=== PATIENT | male | born 1930 | race Caucasian/White ===

== ENCOUNTER 2017-12-20 11:06 | Observation (INO) ==
--- NOTE | 2017-12-20 11:21 | DR.GENAD ---
HPI - Complaint/Symptoms Chief Complaint Doctors Comments: Patient states he was working in the yard pulling up and transplanting and he felt dizzy and fell over and he got up and tried to continue and got dizzy and fell over again and [facility] went [facility] and they told him he needed to go to the doctor. EMS states he was working in the yard and had a syncope spell. states his blood pressue was 104/64. States he has head a dull headache at times but denies chest pain, SOB, cold or cough. States he has a problem with constipation and urine incontinence. Family states the patient pressure washed the house yesterday and was planting tejada today in the sun. Patient states he had a cardiac stent about four years ago at [facility] - Nurses notes reviewed Nurses Notes Review: Yes - Source History Provided: Patient, EMS - Mode of Arrival Mode of Arrival: EMS - Timing Came on: Suddenly - Duration Duration: Intermittent How lon Duration: Hours - Location Location: dizziness - Severity Severity: Mild - Modifying Factors Worsens:: nothing Improves:: nothing ROS - Review of Systems Constitutional: No Symptoms Reported, Weakness. negative: See HPI, Chills, Diaphoresis, Fever, Malaise, Irritable, Fatigue, Loss of Appetite, Other Eyes: No Symptoms Reported ENTM: No Symptoms Reported. negative: See HPI, Ear Pain, Ear Discharge, Pulling on Ears, Hearing Loss, Nose Pain, Nose Discharge, Epistaxis, Nose Congestion, Mouth Pain, Mouth Swelling, Loose Teeth, Drooling, Throat Pain, Throat Swelling, Ear Foreign Body Respiratoy: No Symptoms Reported, Short of Breath. negative: See HPI, Productive Cough, Non-Productive Cough, Moist Cough, Dry Cough, Hacking Cough, Barking Cough, Brassy Cough, Orthopnea, Stridor, Wheezing, Hemoptysis, Other Cardiovascular: No Symptoms Reported, Syncope. negative: See HPI, Chest Pain, Edema, Palpitations, Cyanosis, Skin Mottling, Other Gastrointestinal/Abdominal: No Symptoms Reported. negative: See HPI, Abdominal Pain, Constipation, Diarrhea, Nausea, Vomiting, Food Intolerance, Other Genitourinary: No Symptoms Reported Neurological: No Symptoms Reported Musculoskeletal: No Symptoms Reported Integumentary: No Symptoms Reported Hematologic/Lymphatic: No Symptoms Reported Endocrine: No Symptoms Reported. negative: See HPI, Excessive Sweating, Flushing, Intolerance to Cold, Intolerance to Heat, Increased Hunger, Increased Thirst, Increased Urine, Unexplained Weight Gain, Unexplained Weight Loss, Failure to Thrive, Decreased Appetite, Other Psychiatric: No Symptoms Reported PE - General Limitations: No Limitations General Appearance: Alert, In No Apparent Distress - Head Head Exam: Normal Inspection, Atraumatic, Normocephalic - Eyes Eye exam: Normal Appearance, PERRL, EOMI. negative: Scleral Icterus, Conjunctival Injection, Nystagmus, Miosis, Mydrasis, Periorbital Swelling, Periorbital Tenderness, Other - ENT ENT Exam: Normal Exam, Normal Oropharynx, Normal External Ear Exam, Mucous Membranes Moist, TM's Normal Bilaterally External Ear Exam: Normal External Inspection TM/Canal Exam: Bilateral Normal Nose Exam: Normal Nose Exam Mouth Exam: Normal Inspection Throat Exam: Normal Inspection. negative: Tonsillar Erythema, Tonsillomegaly, Tonsillar Exudate, R Peritonsillar Mass, L Peritonsillar Mass, Muffled Voice, Other - Neck Neck Exam: Normal Inspection, Full ROM, Trachea Midline - Chest Chest Inspection: Normal Inspection, Symmetric Chest Wall Rise - Respiratory Respiratory Exam: Normal Lung Sounds Bilat. negative: Accessory Muscle Use, Chest Wall Tenderness, Prolonged Expiratory Phase, Respiratory Distress, Stridor , Other Respiratory Exam: Bilateral Clear to Auscultation - Cardiovascular Cardiovascular Exam: Regular Rate, Irregular Rhythm, Normal Heart Sounds, Systolic Murmur - Abdominal Exam Abdominal Exam: Normal Inspection, Normal Bowel Sounds, Soft. negative: Distention, Tenderness, Guarding, Rebound, Rigidity, Dimnished Bowel Sounds, Hyperactive Bowel Sounds, Hypoactive Bowel Sounds, Organomegaly, Trauma, Incision, Ascites, Mass, Bruit, Pulsatile Mass, Hernia, Other Abdominal Tenderness: negative: RUQ, RLQ, LUQ, LLQ, Epigastrium, Suprapubic, Diffuse, Mild, Moderate, Severe, Other - Extremities Extremities Exam: Normal Inspection, Full ROM, Normal Capillary Refill. negative: Tenderness, Edema, Joint Swelling, Calf Tenderness, Other - Back Back Exam: Normal Inspection, Full ROM. negative: Tenderness, (R) CVA Tenderness, (L) CVA Tenderness, Muscle Spasm, Paraspinal Tenderness, Vertebral Tenderness, Rashes, (R) Sciatic Notch Tenderness, (L) Sciatic Notch Tendern, (R ) Straight Leg Raise, (L) Straight Leg Raise, Other - Neurologic Neurological Exam: Alert, Oriented X3, CN II-XII Intact, Reflexes Normal. negative: Normal Gait (gait not tested) - Psychiatric Psychiatric Exam: Normal Affect, Normal Mood - Skin Skin Exam: Warm, Dry, Intact, Normal Color - Vital Signs Vitals: Temperature 98.5 F Pulse Rate [Right Radial] 70 Pulse Rate 82 Respiratory Rate 16 Blood Pressure [Right Radial 128/80 Artery] Blood Pressure 104/62 O2 Sat by Pulse Oximetry 99 Course - Reevaluation 1st: Improved - Consultation Called: 13:17 Call Returned: 13:17 (Dr. López to admit) - Education/Counseling Education/Counseling: Patient, Family Educated On: Treatment, Diagnosis, Needs for Follow Up ROR - Labs Reviewed Laboratory Results Reviewed?: Yes (All labs and x-ray results reviewed and discussed with patient) Result Diagrams: 12/20/17 11:38 12/20/17 11:38 - XRAY XRAY Interpreted by: Radiologist (CT head: No definite evidence of an acute intracranial process. Moderate microvascular white matter ischemic changes.) - EKG Rate: 82 [place]: Normal Rhythm: NSR, PVCs Block: None Hypertrophy: None ST: Normal, Nonsp - Labs Reviewed Laboratory: WBC 8.9 X10^3/uL (3.6-10.0) 12/20/17 11:38 RBC 4.22 X10^6/uL (4.7-6.0) L 12/20/17 11:38 Hgb 13.5 g/dL (13.5-18.0) 12/20/17 11:38 Hct 38.4 % (42.0-54.0) L 12/20/17 11:38 MCV 91.0 fL (80.0-100.0) 12/20/17 11:38 MCH 32.0 pg (27.0-34.0) 12/20/17 11:38 MCHC 35.1 g/dL (33.0-35.0) H 12/20/17 11:38 RDW 13.6 % (11.6-16.5) 12/20/17 11:38 Plt Count 136 X10^3/uL (150.0-450.0) L 12/20/17 11:38 MPV 8.8 fL (7.4-11.0) 12/20/17 11:38 Neut % (Auto) 73.2 % (42.0-75.0) 12/20/17 11:38 Lymph % (Auto) 15.5 % (21.0-51.0) L 12/20/17 11:38 [place] % (Auto) 9.2 % (0.0-13.0) 12/20/17 11:38 Eos % (Auto) 1.9 % (0.9-2.9) 12/20/17 11:38 Baso % (Auto) 0.2 % (0.2-1.0) 12/20/17 11:38 Neut # (Auto) 6.5 x10^3/uL (2.2-4.8) H 12/20/17 11:38 Lymph # (Auto) 1.4 X10^3/uL (1.3-2.9) 12/20/17 11:38 [place] # (Auto) 0.8 x10^3/uL (0.3-0.8) 12/20/17 11:38 Eos # (Auto) 0.2 x10^3/uL (0.0-0.2) 12/20/17 11:38 Baso # (Auto) 0.0 X10^3/uL (0.0-0.1) 12/20/17 11:38 Absolute Nucleated RBC 0.0 /100WBC 12/20/17 11:38 INR Target Range - 12/20/17 11:38 INR 0.97 (0.8-1.3) 12/20/17 11:38 APTT 27.3 SECONDS (22.9-36.5) 12/20/17 11:38 PTT Comment - 12/20/17 11:38 D-Dimer 503 ng/mL (0-400) H* 12/20/17 11:38 Sodium 140 mmol/L (136-145) 12/20/17 11:38 Corrected Sodium TNP 12/20/17 11:38 Potassium 3.8 mmol/L (3.5-5.1) 12/20/17 11:38 Chloride 104 mmol/L (98-107) 12/20/17 11:38 Carbon Dioxide 27.7 mmol/L (21-32) 12/20/17 11:38 BUN 24 mg/dL (7-18) H 12/20/17 11:38 Creatinine 1.59 mg/dL (0.70-1.30) H 12/20/17 11:38 Est GFR (MDRD) Af Amer 53 (>60) L 12/20/17 11:38 Est GFR (MDRD) Non-Af 44 (>60) L 12/20/17 11:38 Glucose 93 mg/dL (65-99) 12/20/17 11:38 Calcium 8.0 mg/dL (8.5-10.1) L 12/20/17 11:38 Corrected Calcium TNP 12/20/17 11:38 Magnesium 2.0 mg/dL (1.7-2.9) 12/20/17 11:38 Total Bilirubin 0.70 mg/dL (0.2-1.0) 12/20/17 11:38 AST 23 Units/L (15-37) 12/20/17 11:38 ALT 19 Units/L (12-78) 12/20/17 11:38 Alkaline Phosphatase 73 Units/L (46-116) 12/20/17 11:38 Creatine Kinase 161 Units/L (39-308) 12/20/17 11:38 CK-MB (CK-2) 1.8 ng/mL (0-4.0) 12/20/17 11:38 CK/CKMB % Calc 1.1 % (<4) 12/20/17 11:38 Troponin I < 0.02 ng/mL (0-1.5) 12/20/17 11:38 Total Protein 6.8 g/dL (6.4-8.2) 12/20/17 11:38 Albumin 3.8 g/dL (3.4-5.0) 12/20/17 11:38 Globulin 3.0 g/dL (2.5-4.5) 12/20/17 11:38 Albumin/Globulin Ratio 1.3 Ratio (1.1-2.1) 12/20/17 11:38 - Diagnosis Discharge Problem: Syncope and collapse, Dehydration, mild, abnormal d-dimer Cardiac arrhythmia Qualifiers: Arrhythmia type: other cardiac arrhythmia Qualified Code(s): I49.8 - Other specified cardiac arrhythmias Chronic kidney disease Qualifiers: Chronic kidney disease stage: stage 3 (moderate) Qualified Code(s): N18.3 - Chronic kidney disease, stage 3 (moderate) - Discharge Plan Disposition: ADMITTED INPATIENT Condition: Stable - Follow ups/Referrals Follow ups/Referrals: LEE MITCHELL [Primary Care Provider] - 3 days - Instructions
[2017-12-20] MEDS: NS 1000 ML 1,000 ML IV SCH (11:51)
--- NOTE | 2017-12-20 11:53 | CT ---
CT HEAD WITHOUT CONTRAST CLINICAL HISTORY: 87-year-old male with dizziness and syncopal episode. COMPARISON: None. TECHNIQUE: Multiple, non-contrasted axial CT images were obtained from the skull base to the cranial vertex. Coronal and sagittal reformats were performed. FINDINGS: There are no abnormal intra- or extra-axial fluid collections, midline shift, or mass effec t. Lassiter-white differentiation is normal. Partially empty sella. Global cortical involutional changes are present that are advanced for the patient's stated age. The ventricular system is mildly enlarged but commensurate with the degree of sulcal prominence. Periventricular and supraventricular white ma tter hypodensity is present that is nonspecific in appearance, but most likely to represent microvasc ular ischemic changes. Atherosclerotic vascular calcification is present within the carotid siphons a nd distal vertebral arteries. The imaged paranasal sinuses, mastoid air cells, and tympanic spaces are clear. Bilateral lens implan ts. IMPRESSION: 1. No definite evidence of an acute intracranial process. If clinical concern persists for acute stro ke and it would alter patient management, consider MRI/MRA brain. 2. Moderate microvascular white matter ischemic changes, with associated volume loss. Reported By:
--- NOTE | 2017-12-20 11:56 | RAD ---
Examination: PA chest History: Dizzy Findings: Normal transverse heart size and contour. The lungs are clear and normally inflated. There is no evidence for pneumothorax, CHF, pneumonia or pleural effusion. Impression: No acute findings. Reported By:
[2017-12-20 12:01] LABS: BASOPHILS % (AUTO) 0.2 % (0.2-1.0); EOSINOPHILS # (AUTO) 0.2 x10^3/uL (0.0-0.2); EOSINOPHILS % (AUTO) 1.9 % (0.9-2.9); HEMATOCRIT 38.4 % (42.0-54.0); HEMOGLOBIN 13.5 g/dL (13.5-18.0); LYMPHOCYTES # (AUTO) 1.4 X10^3/uL (1.3-2.9); LYMPHOCYTES % (AUTO) 15.5 % (21.0-51.0); MEAN CORPUSCULAR HGB CONC 35.1 g/dL (33.0-35.0); MEAN PLATELET VOLUME 8.8 fL (7.4-11.0); MONOCYTES # (AUTO) 0.8 x10^3/uL (0.3-0.8); MONOCYTES % (AUTO) 9.2 % (0.0-13.0); NEUTROPHILS # (AUTO) 6.5 x10^3/uL (2.2-4.8); NEUTROPHILS % (AUTO) 73.2 % (42.0-75.0); PLATELET COUNT 136 X10^3/uL (150.0-450.0); RED BLOOD COUNT 4.22 X10^6/uL (4.7-6.0); RED CELL DISTRIBUTION WIDTH 13.6 % (11.6-16.5); WHITE BLOOD COUNT 8.9 X10^3/uL (3.6-10.0)
[2017-12-20 12:14] LABS: BLOOD UREA NITROGEN 24 mg/dL (7-18); CARBON DIOXIDE 27.7 mmol/L (21-32); CHLORIDE 104 mmol/L (98-107); CREATININE 1.59 mg/dL (0.70-1.30); SODIUM 140 mmol/L (136-145); TROPONIN I < 0.02 ng/mL (0-1.5); eGFR NON BLACK RACES 44 (>60)
[2017-12-20 12:19] LABS: ALANINE AMINOTRANSFERASE 19 Units/L (12-78); ALBUMIN 3.8 g/dL (3.4-5.0); ALKALINE PHOSPHATASE 73 Units/L (46-116); ASPARTATE AMINO TRANSFERASE 23 Units/L (15-37); CKMB % 1.1 % (<4); CREATINE KINASE 161 Units/L (39-308); CREATINE KINASE MB 1.8 ng/mL (0-4.0); TOTAL PROTEIN 6.8 g/dL (6.4-8.2)
[2017-12-20] MEDS ORDERED: LOVENOX INJ 80 MG SYR SC STA (13:19)
[2017-12-20] MEDS: PROTONIX INJ 40 MG VIAL IVP SCH (14:04)
[2017-12-20 15:06] VITALS: BMI 31.2
[2017-12-20 18:02] LABS: CKMB % 1.3 % (<4); CREATINE KINASE 140 Units/L (39-308); CREATINE KINASE MB 1.8 ng/mL (0-4.0); TROPONIN I < 0.02 ng/mL (0-1.5)
[2017-12-20 20:29] LABS: T4 (THYROXINE) 7.2 ug/dL (4.7-13.3); TSH (3RD GENERATION) 1.959 uIU/mL (0.358-3.74)
[2017-12-20] MEDS: LOVENOX INJ 80 MG SYR SC SCH (20:40)
[2017-12-20] MEDS ORDERED: RESTORIL CAP 15 MG PO PRN (20:56)
[2017-12-20] MEDS ORDERED: ZOCOR TAB 10 MG PO SCH (21:00)
[2017-12-20] MEDS ORDERED: ZYLOPRIM PO SCH (21:00)
[2017-12-20 21:44] LABS: CKMB % 1.2 % (<4); CREATINE KINASE 130 Units/L (39-308); CREATINE KINASE MB 1.5 ng/mL (0-4.0); TROPONIN I < 0.02 ng/mL (0-1.5)
[2017-12-21 01:42] LABS: CKMB % 1.1 % (<4); CREATINE KINASE 114 Units/L (39-308); CREATINE KINASE MB 1.3 ng/mL (0-4.0); TROPONIN I < 0.02 ng/mL (0-1.5)
[2017-12-21] MEDS: NS 1000 ML 1,000 ML IV SCH ×2 (02:10→16:58)
[2017-12-21 07:29] LABS: BASOPHILS % (AUTO) 0.1 % (0.2-1.0); EOSINOPHILS # (AUTO) 0.2 x10^3/uL (0.0-0.2); EOSINOPHILS % (AUTO) 3.5 % (0.9-2.9); HEMATOCRIT 33.4 % (42.0-54.0); LYMPHOCYTES # (AUTO) 1.2 X10^3/uL (1.3-2.9); LYMPHOCYTES % (AUTO) 18.7 % (21.0-51.0); MEAN CORPUSCULAR HEMOGLOBIN 32.8 pg (27.0-34.0); MEAN CORPUSCULAR HGB CONC 35.9 g/dL (33.0-35.0); MEAN CORPUSCULAR VOLUME 91.2 fL (80.0-100.0); MEAN PLATELET VOLUME 9.1 fL (7.4-11.0); MONOCYTES # (AUTO) 0.7 x10^3/uL (0.3-0.8); MONOCYTES % (AUTO) 11.2 % (0.0-13.0); NEUTROPHILS # (AUTO) 4.4 x10^3/uL (2.2-4.8); NEUTROPHILS % (AUTO) 66.5 % (42.0-75.0); PLATELET COUNT 118 X10^3/uL (150.0-450.0); RED BLOOD COUNT 3.66 X10^6/uL (4.7-6.0); RED CELL DISTRIBUTION WIDTH 13.9 % (11.6-16.5); WHITE BLOOD COUNT 6.6 X10^3/uL (3.6-10.0)
[2017-12-21] MEDS: PROTONIX INJ 40 MG VIAL IVP SCH (08:40)
[2017-12-21 08:43] LABS: ALANINE AMINOTRANSFERASE 15 Units/L (12-78); ALBUMIN 3.1 g/dL (3.4-5.0); ALKALINE PHOSPHATASE 58 Units/L (46-116); ASPARTATE AMINO TRANSFERASE 19 Units/L (15-37); BLOOD UREA NITROGEN 19 mg/dL (7-18); CALCIUM 7.6 mg/dL (8.5-10.1); CARBON DIOXIDE 24.6 mmol/L (21-32); CHLORIDE 109 mmol/L (98-107); CHOL/HDL RATIO 3.1 (0.0-5.0); CHOLESTEROL 149 mg/dL (0-200); CKMB % 1.2 % (<4); COR CA(FOR HYPOALB) 8.3 mg/dL (8.5-10.1); CREATINE KINASE 104 Units/L (39-308); CREATINE KINASE MB 1.2 ng/mL (0-4.0); CREATININE 1.37 mg/dL (0.70-1.30); HDL CHOLESTEROL 48 mg/dL (40-60); SODIUM 143 mmol/L (136-145); TOTAL PROTEIN 5.7 g/dL (6.4-8.2); TRIGLYCERIDES 128 mg/dL (0-150); TROPONIN I < 0.02 ng/mL (0-1.5); eGFR NON BLACK RACES 52 (>60)
[2017-12-21] MEDS ORDERED: HYZAAR 50/12.5 MG PO SCH (09:00)
[2017-12-21] MEDS ORDERED: ASPIRIN 81 MG CHEWTAB PO SCH (09:00)
[2017-12-21] MEDS: LOVENOX INJ 80 MG SYR SC SCH (09:02)
--- NOTE | 2017-12-21 15:47 | VAS ---
HISTORY: 87-year-old male with dizziness and syncopal episode. Study: Duplex carotid Doppler. Comparison: None. Technique: Multiple kapoor scale and color flow Doppler images of the right and left carotid arterial s ystem were obtained. The vertebral arterial system was evaluated as well. Findings: Normal color flow Doppler is seen throughout the right and left carotid arterial system. All PSV les s than 125 centimeter/second. No hemodynamically significant stenosis is seen based on velocity crite porfirio. The right and left vertebral arteries demonstrate antegrade flow. Right ICA/CCA ratio 1.17, left ICA/CCA ratio 0.79. IMPRESSION: 1. No hemodynamically significant stenosis based on velocity criteria. Reported By:
[2017-12-21] MEDS ORDERED: SYNTHROID 50 mcg TAB PO SCH (16:30)
[2017-12-21 16:55] VITALS: BP 129/62
--- NOTE | 2018-01-18 07:32 | DR.CARTERS ---
Short Stay Summary - Short Stay Summary for: Short Stay Summary for Date of:: 12/20/17 - Admission Date Date of Admission: 12/20/17 - Discharge Date Discharge Date: 12/21/17 - Admission Diagnoses (1) Chronic kidney disease Status: Acute (2) Dehydration, mild Status: Acute (3) Syncope and collapse Status: Acute - Hospital Course Hospital Course: Patient states he was working in the yard pulling up and transplanting and he felt dizzy and fell over and he got up and tried to continue and got dizzy and fell over again and [facility] and they told him he needed to go to the doctor. EMS states he was working in the yard and had a syncope spell. states his blood pressue was 104/64. States he has head a dull headache at times but denies chest pain, SOB, cold or cough. States he has a problem with constipation and urine incontinence. Family states the patient pressure washed the house yesterday and was planting tejada today in the sun. Patient states he had a cardiac stent about four years ago at [facility]. Patient did have elevation with CR consistent with dehydration. Patient was given IV hydration. No cardiac abnormalities were noted. Patient was discharged home to be followed on OP basis. - Discharge Medications Discharge Medications: Home Medication List allopurinol 300 mg PO HS 12/20/17 [History] aspirin 81 mg PO DAILY 12/20/17 [History] glucosamine-chondroitin [Osteo Bi-Flex] 1 tab PO DAILY 12/20/17 [History] levothyroxine 50 mcg PO DAILY 12/20/17 [History] losartan-hydrochlorothiazide 1 tab PO DAILY 12/20/17 [History] simvastatin 40 mg PO HS 12/20/17 [History] Prescriptions: - Discharge Plan Disposition: HOME, SELF-CARE Condition: Stable - Follow up/Referrals Follow up/Referrals: KRYSTIAN RODGERS [REFERRING] - LEE MITCHELL [Primary Care Provider] - 3 days - Instructions Instructions: Near-Syncope, [id number] Additional Instructions: increase po fluids rest, keep bp diary follow up with pcp in one week needs outpt cardiac workup
== END 2017-12-21 17:00 | disposition home or self-care (01) ==
LOC: MED/SURG 11:06 → ER 11:06 → MED/SURG 14:26
PROVIDERS: ADMIT Internal Medicine; ATTEND Internal Medicine
DX: R55 Syncope and collapse; I49.8 Other specified cardiac arrhythmias; E86.0 Dehydration; R94.4 Abnormal results of kidney function studies; N18.3 Chronic kidney disease, stage 3 (moderate); R94.31 Abnormal electrocardiogram [ECG] [EKG]; Z79.1 Long term (current) use of non-steroidal anti-inflammatories (NSAID); Z66 Do not resuscitate
CPT/HCPCS: 36415; 70450; 71010; 71045; 80053; 80061; 82550; 82553; 83735; 84436; 84443; 84484; 85025; 85378; 85610; 85730; 93005; 93010; 93880; 94760; 96365; 96367; 96372; 96374; 96375; 99217; 99284; A4216; C9113; G0378; J1650; J7030